=== PATIENT | male | born 1995 ===

== ENCOUNTER 2018-09-18 17:43 | Emergency (ER) | payer OTHER ==
[~2018-09-18] VITALS: Ht 157.5 cm; Wt 70.3 kg
[~2018-09-18 17:43] MED LIST: COZAAR50 MG PO
== END 2018-09-18 22:16 | disposition home or self-care (01) ==
LOC: ER 17:43
DX: B34.9 Viral infection, unspecified (principal); R50.9 Fever, unspecified